=== PATIENT | male | born 1975 | race Two or more races ===

== ENCOUNTER 2021-02-09 08:06 | Emergency (ER) | payer MEDICAID, OTHER ==
--- NOTE | 2021-02-09 08:55 | EDM.PDOC ---
ED HPI GENERAL MEDICAL PROBLEM - General Chief Complaint: Back Pain or Injury Stated Complaint: lower back pain Time Seen by Provider: 02/09/21 08:17 Source of Information: Reports: Patient History Limitations: Reports: No Limitations - History of Present Illness INITIAL COMMENTS - FREE TEXT/NARRATIVE: Pt. presents to ER with a 1 week history of low back pain with radiation into lower extremities. Pt. denies any specific event that precipitated the discomfort. He states that he is having trouble sleeping due to the pain. Pt. denies any incontinence. Pt. denies any saddle anesthesia. Pt. states that he does have pain in the area of L3 in his low back and numbness/burning in the mid medial thigh region. Pt. denies any fever or chills. Denies any abdominal discomfort. he adamantly denies any IV drug use. Pt. states that he did have some sore throat, congestion and white patches in the inside of his mouth that resolved. Pt. states that he does not have any PCP and states that he has not seen a doctor in 15 years. He denies any recent accident, trauma, fall preceding the start of this discomfort. 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 Lower Back Pain Score (Numeric/FACES): 9 - Related Data Allergies Allergy/AdvReac Type Severity Reaction Status Date / Time No Known Allergies Allergy Verified 02/09/21 08:07 Home Meds: Home Meds Ibuprofen [Motrin] 2 - 3 tab PO Q6HR PRN 02/09/21 [History] Past Medical History Musculoskeletal History: Reports: Fracture Psychiatric History: Reports: Addiction, Anxiety, Bipolar, Psych Hospitalization(s), Suicide Attempt Social & Family History - Tobacco Use Tobacco Use Status *Q: Never Tobacco User Second Hand Smoke Exposure: No - Caffeine Use Caffeine Use: Reports: Coffee, Soda - Recreational Drug Use Recreational Drug Use: Yes Drug Use in Last 12 Months: Yes Recreational Drug Type: Reports: Marijuana/Hashish Recreational Drug Use Frequency: Daily ED ROS GENERAL - Review of Systems Review Of Systems: See Below Constitutional: Reports: No Symptoms. Denies: Fever, Chills, Malaise, Weakness, Fatigue, Night Sweats, Diaphoresis, Decreased Appetite, Weight Loss, Weight Gain HEENT: Reports: Throat Pain (Resolved) Respiratory: Reports: No Symptoms Cardiovascular: Reports: No Symptoms Endocrine: Reports: No Symptoms GI/Abdominal: Reports: No Symptoms : Reports: No Symptoms Musculoskeletal: Reports: No Symptoms Skin: Reports: No Symptoms Neurological: Reports: Paresthesia (medial thigh bilaterally). Denies: Dizziness, Pre-Existing Deficit Psychiatric: Reports: No Symptoms Hematologic/Lymphatic: Reports: No Symptoms ED EXAM, GENERAL - Physical Exam Exam: See Below Exam Limited By: No Limitations General Appearance: Alert, WD/WN, Moderate Distress Back Exam: Normal Inspection, Decreased Range of Motion, Muscle Spasm, Paraspinal Tenderness (R>L) Extremities: Normal Inspection, Normal Range of Motion, Normal Capillary Refill Neurological: Alert, Oriented, CN II-XII Intact, Normal Reflexes (2+ patellar reflexes bilaterally.), No Motor/Sensory Deficits Skin Exam: Warm, Dry, Intact, Normal Color, No Rash Course - Vital Signs Last Recorded V/S: Last Vital Signs Temp 36.2 C 02/09/21 08:17 Pulse 70 02/09/21 08:17 Resp 18 02/09/21 08:17 BP 101/71 02/09/21 08:17 Pulse Ox 99 02/09/21 08:17 Departure - Departure Time of Disposition: 09:00 Disposition: Home, Self-Care 01 Clinical Impression: Lumbar back pain with radiculopathy affecting lower extremity - Discharge Information Instructions: Acetaminophen; Hydrocodone tablets or capsules, Cyclobenzaprine tablets, Acute Back Pain, Adult Referrals: PCP,None [Primary Care Provider] - Forms: ED Department Discharge Additional Instructions: Lortab 5/325mg 1 every 6 hours as needed for pain Flexeril 10mg 1 tab three times daily for spasm The hospital will contact you about appointments for physical therapy and MRI Establish care and follow-up in clinic in 7-10 days Sepsis Event Note (ED) - Evaluation Sepsis Screening Result: No Definite Risk - Focused Exam Vital Signs: Vital Signs Temp Pulse Resp BP Pulse Ox 02/09/21 08:17 36.2 C 70 18 101/71 99
== END 2021-02-09 08:47 | disposition home or self-care (01) ==
LOC: LL.ED 08:06
DX: M54.16 Radiculopathy, lumbar region (principal)
CPT/HCPCS: 99283

== ENCOUNTER 2021-03-15 07:28 | Emergency (ER) | payer OTHER ==
--- NOTE | 2021-03-15 08:23 | EDM.PDOC ---
ED HPI GENERAL MEDICAL PROBLEM - General Chief Complaint: Back Pain or Injury Stated Complaint: LOWER BACK PAIN Time Seen by Provider: 03/15/21 08:00 Source of Information: Reports: Patient History Limitations: Reports: No Limitations - History of Present Illness INITIAL COMMENTS - FREE TEXT/NARRATIVE: Patient presents to the ED for low back pain with bilateral radiation. He has a history of back problems with flares like this in the past. No new injury. 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 No new injury or trauma but noted SI joint area pain with radiation bilaterally to the lateral knees left greater than right. No numbness, no loss of bowel of bladder control. NO IVDU. Did try motirn and biofreeze. Was seen for this last month and pain medication helped. His boss had a hydrocodone and gave him one today, this helped and he was sleeping after triage. Did not sleep last night and was drinking beer to help with the pain. 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: Other Medication(s) Back Pain Score (Numeric/FACES): 9 Headache Pain Score (Numeric/FACES): 9 - Related Data Allergies Allergy/AdvReac Type Severity Reaction Status Date / Time No Known Allergies Allergy Verified 03/15/21 07:34 Home Meds: Home Meds Ibuprofen [Motrin] 2 - 3 tab PO Q6HR PRN 02/09/21 [History] Hydrocodone/Acetaminophen [HYDROcodone-Acetaminophen 5-325 MG] 1 each PO Q6HR PRN #20 tablet 03/15/21 [Rx] diazePAM [Valium] 10 mg PO Q8HR #15 tablet 03/15/21 [Rx] Past Medical History Musculoskeletal History: Reports: Fracture Psychiatric History: Reports: Addiction, Anxiety, Bipolar, Psych Hospitalization(s), Suicide Attempt Social & Family History - Tobacco Use Tobacco Use Status *Q: Current Every Day Tobacco User Years of Tobacco use: 20 Packs/Tins Daily: 1 - Caffeine Use Caffeine Use: Reports: Coffee, Soda - Alcohol Use Alcohol Use History: Yes Alcohol Use in Last Twelve Months: Yes - Recreational Drug Use Recreational Drug Use: Yes Recreational Drug Type: Reports: Marijuana/Hashish Recreational Drug Use Frequency: Weekly ED ROS GENERAL - Review of Systems Review Of Systems: See Below Constitutional: Reports: No Symptoms. Denies: Fever, Chills HEENT: Reports: No Symptoms. Denies: Sinus Problem, Throat Swelling, Vision Change Cardiovascular: Reports: No Symptoms. Denies: Chest Pain, Dyspnea on Exertion Endocrine: Reports: No Symptoms GI/Abdominal: Reports: No Symptoms. Denies: Abdominal Pain, Nausea, Vomiting : Reports: No Symptoms. Denies: Dysuria, Frequency Musculoskeletal: Reports: Back Pain Skin: Reports: No Symptoms Neurological: Reports: No Symptoms. Denies: Confusion, Dizziness, Pre-Existing Deficit Psychiatric: Denies: No Symptoms Hematologic/Lymphatic: Reports: No Symptoms ED EXAM,LOWER BACK PAIN/INJURY - Physical Exam Exam: See Below Exam Limited By: No Limitations General Appearance: Alert, WD/WN, Moderate Distress (only after movement, was sleeping at start of exam) Eye Exam: Bilateral Eye: EOMI, Nystagmus, PERRL Ears: Normal External Exam Nose: Normal Inspection, Normal Mucosa, No Blood Throat/Mouth: Other (dry mucus membranes) Head: Atraumatic Neck: Normal Inspection, Supple, Non-Tender. No: Limited Range of Motion Respiratory/Chest: No Respiratory Distress, Lungs Clear, Chest Non-Tender Cardiovascular: Normal Peripheral Pulses, Regular Rate, Rhythm, No Edema, No Murmur GI/Abdominal: Normal Bowel Sounds, Soft, Non-Tender (Male) Exam: Deferred Extremities: Normal Inspection, Normal Range of Motion, Non-Tender, No Pedal Edema, Normal Capillary Refill (normal strength in the lower extremities to hip flexion, knee extenion, knee flexion, foot dorsi and plantar flexion) Neurological: Alert, Normal Mood/Affect, Normal Dorsiflexion, CN II-XII Intact, Normal Plantar Flexion, Normal Gait, No Motor/Sensory Deficits, Oriented x 3 (normal sensation to light touch bilateral in the lower extremities) Psychiatric: Anxious Course - Vital Signs Last Recorded V/S: Last Vital Signs Temp 36.8 C 03/15/21 07:29 Pulse 94 03/15/21 07:29 Resp 22 H 03/15/21 07:29 BP 128/77 03/15/21 07:29 Pulse Ox 100 03/15/21 07:29 - Orders/Labs/Meds Meds: Medications Discontinued Medications Generic Name Dose Route Start Last Admin Trade Name Rosalino PRN Reason Stop Dose Admin Diazepam 10 mg 03/15/21 08:16 03/15/21 08:39 Diazepam 10 Mg/2 Ml Syringe IM 03/15/21 08:17 10 mg ONETIME ONE Administration Methylprednisolone Sodium Succinate 125 mg 03/15/21 08:16 03/15/21 08:39 Methylprednisolone Sodium Succinate 125 Mg/2 Ml Sdv IM 03/15/21 08:17 125 mg ONETIME ONE Administration - Re-Assessments/Exams Free Text/Narrative Re-Assessment/Exam: 03/15/21 08:18 given im valium 10 mg and solu medrol. NO red flag and no neurological deficit. Will send home with valium and hydrocodone. NO alcohol with this. Use lidocaine patches, try the chiropractor. check on insurance and see if physical therapy helps, motrin 600 mg every 6 hours for 7 days. If not improving needs MRI with PCP. return for red flag signs Departure - Departure Time of Disposition: 08:20 Disposition: Home, Self-Care 01 Condition: Fair Clinical Impression: Lumbar back pain with radiculopathy affecting lower extremity Clinical Impression: (Ruled Out): Low back pain due to bilateral sciatica - Discharge Information *PRESCRIPTION DRUG MONITORING PROGRAM REVIEWED*: Yes *COPY OF PRESCRIPTION DRUG MONITORING REPORT IN PATIENT ENRIKE: No Prescriptions: Hydrocodone/Acetaminophen [HYDROcodone-Acetaminophen 5-325 MG] 1 each PO Q6HR PRN #20 tablet PRN Reason: Pain/Fever diazePAM [Valium] 10 mg PO Q8HR #15 tablet Instructions: Radicular Pain, Sciatica, [id number], Sciatica Rehab-SportsMed Forms: ED Department Discharge Additional Instructions: Take motrin ( ibuprofen) 600 mg every 6 hours for the next week with food for inflammation. You were given solu medrol today as an injection and this will kick in and help inflammation in 24 hours. You were given an injection of valium a muscle relaxant and can take this medication every 8 hours. You were given a prescription of hydrocodone that can be taken every 6 hours as needed for pain. These medications will cause constipation. Alcohol should not be take with these medications. Try to get to the chiropractor as manipulation and traction may help. Movement is encouraged as you will have increased pain and stiffness if you do not move If you are not improving, the next steps are physical therapy, TENS unit ( google this, you can buy this online and does help) and possible MRI that would need to be done in [place]. Return to the ED for these warning signs: numbness in the testicle or rectal area, loss of control of bowel of bladder, inability to use the leg such as inability to lift your foot or knee( not due o pain). These are concerning signs you may need an urgent MRI Sepsis Event Note (ED) - Evaluation Sepsis Screening Result: No Definite Risk - Focused Exam Vital Signs: Vital Signs Temp Pulse Resp BP Pulse Ox 03/15/21 07:29 36.8 C 94 22 H 128/77 100
[2021-03-15] MEDS: methylPREDNISolone Sodium Succinate 125 MG/2 ML SDV IM ONE (08:39)
[2021-03-15] MEDS: Acetaminophen/HYDROcodone 325-5 MG Tab PO ONE (10:16)
== END 2021-03-15 10:00 | disposition home or self-care (01) ==
LOC: LL.ED 07:28
DX: M54.16 Radiculopathy, lumbar region (principal); Z72.0 Tobacco use
CPT/HCPCS: 96372; 99283; J2930; J3360

== ENCOUNTER 2023-07-11 10:35 | Emergency (ER) | payer OTHER ==
[2023-07-11] MEDS: Diphtheria,Pertussis(Acell),Tetanus Vaccine 0.5 ML Syringe IM ONE (12:30)
[2023-07-11] MEDS: Bacitracin Oint 1 GM U/D Packet TOP ONE (12:31)
== END 2023-07-11 12:55 | disposition home or self-care (01) ==
LOC: LL.ED 10:35
DX: S61.231A Puncture wound without foreign body of left index finger without damage to nail, initial encounter (principal); Z23 Encounter for immunization; Z79.899 Other long term (current) drug therapy; W29.4XXA Contact with nail gun, initial encounter; Y92.89 Other specified places as the place of occurrence of the external cause; Y99.0 Civilian activity done for income or pay
CPT/HCPCS: 73130-LT; 90471; 90715; 99283-25

== ENCOUNTER 2024-04-23 11:10 | Emergency (ER) | payer SELFPAY ==
[2024-04-23 11:13] VITALS: BP 104/84; PULSE 100
[2024-04-23] MEDS: Lactated Ringers 1,000 ML IV ONE (11:33)
[2024-04-23] MEDS: Ondansetron 4 MG/2 ML SDV IVPUSH PRN (11:33)
[2024-04-23] MEDS: Sodium Chloride 0.9% 10 ML Syringe FLUSH PRN ×2 (11:33→11:34)
[2024-04-23 11:36] LABS: BASOPHILS ABSOLUTE AUTO 0.02 K/uL (0.00-0.20); BASOPHILS PERCENT AUTO 0.1 % (0.0-2.0); EOSINOPHILS ABSOLUTE AUTO 0.02 K/uL (0.00-0.50); EOSINOPHILS PERCENT AUTO 0.1 % (0.0-5.0); HEMATOCRIT 43.2 % (39.0-49.0); HEMOGLOBIN 15.1 g/dL (13.1-16.8); LYMPHOCYTES PERCENT AUTO 10.2 % (10.0-50.0); MEAN CORPUSCULAR HEMOGLOBIN 29.5 pg (28.2-33.3); MEAN CORPUSCULAR VOLUME 84.5 fL (84.0-98.0); MONOCYTES ABSOLUTE AUTO 0.67 K/uL (0.00-1.00); MONOCYTES PERCENT AUTO 4.9 % (2.0-14.0); NEUTROPHILS ABSOLUTE AUTO 11.63 K/uL (1.40-7.00); NEUTROPHILS PERCENT AUTO 84.7 % (45.0-80.0); PLATELET COUNT,PLT 235 K/uL (150-350); RED BLOOD CELL COUNT 5.11 M/uL (4.33-5.41); WHITE BLOOD CELL COUNT,WBC 13.7 K/uL (4.0-10.2)
[2024-04-23] MEDS ORDERED: Naloxone 0.4 MG/ML SDV IVPUSH PRN (11:46)
[2024-04-23 11:50] LABS: LACTIC ACID 1.5 mmol/L (0.4-2.0)
[2024-04-23] MEDS: fentaNYL 50 MCG/ML SDV IVPUSH ONE (11:54)
[2024-04-23 12:01] LABS: INR 1.1 (0.9-1.1); PROTHROMBIN TIME 10.7 SEC (9.0-11.1)
[2024-04-23 12:06] LABS: ALANINE AMINOTRANSFERASE,ALT 22 U/L (12-78); ALBUMIN 3.7 g/dL (3.4-5.0); ALKALINE PHOSPHATASE 73 IU/L (46-116); ANION GAP 10.9 meq/L (7-15); ASPARTATE AMNIOTRANSFERASE,AST 17 U/L (15-37); BILIRUBIN TOTAL 0.4 mg/dL (0.2-1.0); BLOOD UREA NITROGEN,BUN 4 mg/dL (7-18); CALCIUM 9.1 mg/dL (8.5-10.1); CARBON DIOXIDE,CO2 26.1 mmol/L (21.0-32.0); CHLORIDE,CL 100 mmol/L (98-107); CREATININE 0.97 mg/dL (0.51-1.17); GLUCOSE RANDOM 110 mg/dL (70-99); MAGNESIUM 1.7 mg/dL (1.8-2.4); POTASSIUM,K 3.5 mmol/L (3.5-5.1); PROTEIN TOTAL,TP 7.5 g/dL (6.4-8.2); SODIUM,NA 137 mmol/L (136-145)
[2024-04-23 12:08] LABS: ESTIMATED GFR 97 mL/min (>=60)
== END 2024-04-23 14:05 | disposition home or self-care (01) ==
LOC: LL.ED 11:10
DX: K52.9 Noninfective gastroenteritis and colitis, unspecified (principal)
CPT/HCPCS: 36415; 74176; 80053; 83605; 83735; 84484; 85025; 85610; 93005; 93010; 96361; 96374; 96375; 99284; 99284-25; J2405; J3010; J3490; J7120

== ENCOUNTER 2024-11-29 06:46 | Emergency (ER) | payer SELFPAY ==
[2024-11-29] MEDS ORDERED: Sodium Chloride 0.9% 10 ML Syringe FLUSH PRN (07:06)
[2024-11-29 07:15] LABS: BASOPHILS ABSOLUTE AUTO 0.03 K/uL (0.00-0.20); BASOPHILS PERCENT AUTO 0.3 % (0.0-2.0); EOSINOPHILS ABSOLUTE AUTO 0.05 K/uL (0.00-0.50); EOSINOPHILS PERCENT AUTO 0.5 % (0.0-5.0); HEMATOCRIT 38.9 % (39.0-49.0); HEMOGLOBIN 13.6 g/dL (13.1-16.8); IMMATURE GRAN ABSOLUTE AUTO 0.01 10^3/uL (0.00-0.04); IMMATURE GRAN PERCENT AUTO 0.1 % (0.0-0.4); LYMPHOCYTES ABSOLUTE AUTO 2.07 K/uL (0.50-3.50); LYMPHOCYTES PERCENT AUTO 20.8 % (10.0-50.0); MEAN CORPUSCULAR HEMOGLOBIN 29.2 pg (28.2-33.3); MEAN CORPUSCULAR VOLUME 83.7 fL (84.0-98.0); MONOCYTES ABSOLUTE AUTO 0.52 K/uL (0.00-1.00); MONOCYTES PERCENT AUTO 5.2 % (2.0-14.0); NEUTROPHILS ABSOLUTE AUTO 7.28 K/uL (1.40-7.00); NEUTROPHILS PERCENT AUTO 73.1 % (45.0-80.0); PLATELET COUNT,PLT 219 K/uL (150-350); RED BLOOD CELL COUNT 4.65 M/uL (4.33-5.41); RED CELL DISTRIBUTION WIDTH 12.7 % (11.2-14.1)
[2024-11-29 07:36] LABS: ALANINE AMINOTRANSFERASE,ALT 20 U/L (12-78); ALBUMIN 3.8 g/dL (3.4-5.0); ALKALINE PHOSPHATASE 67 IU/L (46-116); ASPARTATE AMNIOTRANSFERASE,AST 18 U/L (15-37); BILIRUBIN TOTAL 0.4 mg/dL (0.2-1.0); BLOOD UREA NITROGEN,BUN 8 mg/dL (7-18); CALCIUM 8.3 mg/dL (8.5-10.1); CARBON DIOXIDE,CO2 24.2 mmol/L (21.0-32.0); CHLORIDE,CL 109 mmol/L (98-107); CREATININE 0.69 mg/dL (0.51-1.17); ETHANOL BLOOD MEDICAL 0.007 g/dL (0.000-0.080); GLUCOSE RANDOM 125 mg/dL (70-99); MAGNESIUM 1.8 mg/dL (1.8-2.4); POTASSIUM,K 3.5 mmol/L (3.5-5.1); PROTEIN TOTAL,TP 6.7 g/dL (6.4-8.2); SODIUM,NA 143 mmol/L (136-145)
[2024-11-29 07:45] LABS: ANION GAP 13.3 meq/L (7-15); ESTIMATED GFR 114 mL/min (>=60)
[2024-11-29] MEDS: HYDROmorphone 0.5 MG/0.5 ML Syringe IVPUSH ONE (08:00)
[2024-11-29] MEDS: Sodium Chloride 0.9% 1,000 ML IV ONE (08:10)
== END 2024-11-29 08:30 | disposition home or self-care (01) ==
LOC: LL.ED 06:46
DX: S41.012A Laceration without foreign body of left shoulder, initial encounter (principal); S01.01XA Laceration without foreign body of scalp, initial encounter; S30.810A Abrasion of lower back and pelvis, initial encounter; S01.81XA Laceration without foreign body of other part of head, initial encounter; Y00.XXXA Assault by blunt object, initial encounter
CPT/HCPCS: 36415; 71045; 73030-LT; 80053; 80307; 83735; 85025; 96374; 96375; 99284; 99285-25; J3360; J7030

== ENCOUNTER 2024-12-02 09:49 | Emergency (ER) | payer SELFPAY ==
[2024-12-02 10:23] LABS: BASOPHILS ABSOLUTE AUTO 0.04 K/uL (0.00-0.20); BASOPHILS PERCENT AUTO 0.6 % (0.0-2.0); EOSINOPHILS ABSOLUTE AUTO 0.14 K/uL (0.00-0.50); HEMATOCRIT 42.2 % (39.0-49.0); HEMOGLOBIN 14.8 g/dL (13.1-16.8); LYMPHOCYTES ABSOLUTE AUTO 1.89 K/uL (0.50-3.50); MEAN CORPUSCULAR HEMOGLOBIN 29.3 pg (28.2-33.3); MEAN CORPUSCULAR HGB CONC 35.1 g/dL (31.7-36.0); MEAN CORPUSCULAR VOLUME 83.6 fL (84.0-98.0); MONOCYTES ABSOLUTE AUTO 0.47 K/uL (0.00-1.00); MONOCYTES PERCENT AUTO 6.7 % (2.0-14.0); NEUTROPHILS ABSOLUTE AUTO 4.47 K/uL (1.40-7.00); NEUTROPHILS PERCENT AUTO 63.7 % (45.0-80.0); PLATELET COUNT,PLT 230 K/uL (150-350); RED BLOOD CELL COUNT 5.05 M/uL (4.33-5.41); RED CELL DISTRIBUTION WIDTH 12.3 % (11.2-14.1)
[2024-12-02] MEDS: Ondansetron 4 MG/2 ML SDV IVPUSH ONE (10:30)
[2024-12-02 10:44] LABS: ALBUMIN 3.9 g/dL (3.4-5.0); ANION GAP 7.4 meq/L (7-15); BILIRUBIN TOTAL 1.1 mg/dL (0.2-1.0); CALCIUM 8.9 mg/dL (8.5-10.1); CARBON DIOXIDE,CO2 26.6 mmol/L (21.0-32.0); CREATININE 0.72 mg/dL (0.51-1.17); EST CRCL DRUG DOSING (CG) 109.14 mL/min; MAGNESIUM 1.8 mg/dL (1.8-2.4); POTASSIUM,K 3.9 mmol/L (3.5-5.1); PROTEIN TOTAL,TP 7.4 g/dL (6.4-8.2)
[2024-12-02 10:45] LABS: PROTHROMBIN TIME 10.5 SEC (9.0-11.1)
[2024-12-02 10:49] LABS: LACTIC ACID 0.7 mmol/L (0.4-2.0)
== END 2024-12-02 11:45 | disposition home or self-care (01) ==
LOC: LL.ED 09:49
DX: F43.0 Acute stress reaction (principal); F41.1 Generalized anxiety disorder
CPT/HCPCS: 36415; 80053; 83605; 83735; 85025; 85610; 96374; 99284; 99284-25; J2405